=== PATIENT | male | born 1965 | race Caucasian/White ===

== ENCOUNTER 2023-03-13 17:02 | Emergency (ER) | payer OTHER ==
[2023-03-13 17:31] VITALS: TEMP 98.1; BMI 21.8
[2023-03-13] MEDS ORDERED: DEXAMETHASONE SOD PHOSPHATE 10 MG/1 ML VIAL IVPUSH ONE (17:38)
[2023-03-13] MEDS ORDERED: DEXAMETHASONE SOD PHOSPHATE/PF 10 MG/ML SDV ONE (17:45)
[2023-03-13 18:17] LABS: HEMATOCRIT 46.5 % (35.4-49); HEMOGLOBIN 15.8 G/dL (11.7-16.9); MCH 30.7 pg (25.7-33.7); MEAN CELL VOLUME 90.3 fl (80-96); MEAN PLT VOLUME 8.9 fl (7.5-11.1); PLATELET COUNT 212.2 10^3/uL (134-434); RBC 5.15 10^6/uL (4.00-5.60); RDW 14.8 % (11.9-15.9); WHITE BLOOD COUNT 8.4 10^3/uL (4.0-10.8)
[2023-03-13 18:26] LABS: PROTHROMBIN TIME (PATIENT) 11.5 SEC (9.7-13.0)
[2023-03-13 18:28] LABS: ACTIVATED PTT 30.5 SECONDS (25.2-36.5)
[2023-03-13 18:33] LABS: ALBUMIN 4.5 g/dl (3.4-5.0); BILIRUBIN,TOTAL 0.8 mg/dl (0.2-1); CREATININE 0.9 mg/dl (0.55-1.3); POTASSIUM 3.9 mmol/L (3.5-5.1); TOT PROT 7.5 g/dl (6.4-8.2)
[2023-03-13 18:34] LABS: PLATELET ESTIMATE ADEQUATE
[2023-03-13 19:17] VITALS: BP 105/69; RESP 14
[2023-03-13 19:24] VITALS: PULSE 76
== END 2023-03-13 19:38 | disposition short-term general hospital (02) ==
LOC: FER 17:02
PROC: 3E033GC Introduction of Other Therapeutic Substance into Peripheral Vein, Percutaneous Approach (ICD-10-PCS; principal; 2023-03-13)
DX: R27.0 Ataxia, unspecified (principal); G93.89 Other specified disorders of brain; R41.0 Disorientation, unspecified; M21.371 Foot drop, right foot; Z20.822 Contact with and (suspected) exposure to COVID-19
CPT/HCPCS: 0241U-QW; 36415; 70450-TC; 80053; 85027; 85610; 85730; 86850; 86900; 86901; 99291; J1100